=== PATIENT | female | born 1990 ===

== ENCOUNTER 2021-04-12 11:59 | Inpatient (IN) | payer OTHER ==
[~2021-04-12] VITALS: Ht 154.9 cm; Wt 3.2 kg
== END 2021-04-19 12:13 | disposition home or self-care (01) | DRG 788 ==
LOC: LDR 04-16 04:11 → OB/GYN 04-16 04:11 → SURH 04-17 15:30 → OB/GYN 04-19 12:13
PROVIDERS: ADMIT Obstetrics & Gynecology; ATTEND Obstetrics & Gynecology
PROC: 4A1HXFZ Monitoring of Products of Conception, Cardiac Rhythm, External Approach (ICD-10-PCS; 2021-04-16)
PROC: 10D00Z1 Extraction of Products of Conception, Low, Open Approach (ICD-10-PCS; principal; 2021-04-16 13:00)
DX: O62.0 Primary inadequate contractions (principal); O42.02 Full-term premature rupture of membranes, onset of labor within 24 hours of rupture; Z37.0 Single live birth; Z3A.39 39 weeks gestation of pregnancy